=== PATIENT | female | born 1980 | race Two or more races ===

== ENCOUNTER 2022-03-10 17:08 | Emergency (ER) | payer MEDICAID ==
[~2022-03-10] VITALS: Ht 162.6 cm; Wt 64.1 kg
[2022-03-10 18:14] VITALS: BP 119/63
== END 2022-03-10 18:17 | disposition home or self-care (01) ==
LOC: ER 17:08
DX: S01.01XD Laceration without foreign body of scalp, subsequent encounter (principal); X58.XXXD Exposure to other specified factors, subsequent encounter